=== PATIENT | female | born 1995 | race African-American/Black ===

== ENCOUNTER 2017-04-30 06:53 | Emergency (ER) | payer SELFPAY ==
[~2017-04-30] VITALS: Ht 172.7 cm; Wt 55.0 kg
[2017-04-30 07:30] VITALS: BP 123/89
== END 2017-04-30 09:20 | disposition home or self-care (01) ==
LOC: ER 07:11
DX: K61.0 Anal abscess (principal); F12.10 Cannabis abuse, uncomplicated
CPT/HCPCS: 99282; 99283